=== PATIENT | male | born 1995 | race Two or more races ===

== ENCOUNTER 2017-03-31 09:39 | Emergency (ER) | payer SELFPAY ==
[2017-03-31] MEDS ORDERED: PENICILLIN G BENZATHINE 1.2 MILLION UNIT/2 ML DISP.SYRIN IM ONE (10:10)
[2017-03-31] MEDS ORDERED: CEFTRIAXONE INJ 250 MG VIAL IM ONE (10:28)
[2017-03-31] MEDS ORDERED: AZITHROMYCIN 250 MG TABLET PO ONE (10:28)
--- NOTE | 2017-03-31 10:31 | ER Document Report ---
HPI - HPI Onset/Duration: Persistent Quality of pain: No pain Pain Level: Denies Context: Patient presents with penile skin rash for the past 2-3 months. Patient states he has been seen for this in the past and has been placed on antifungal cream without improvement of his symptoms. Patient denies any pain or pruritus. Patient denies any penile drainage or discharge. Patient is concerned about possible sexually transmitted infection and would like to be tested. Associated Symptoms: Other - Penile rash. denies: Fever Exacerbated by: Denies Relieved by: Denies Similar symptoms previously: No Recently seen / treated by doctor: No - ROS ROS below otherwise negative: Yes Systems Reviewed and Negative: Yes All other systems reviewed and negative - CONSTITUTIONAL Constitutional: DENIES: Fever, Chills - EENT EENT: DENIES: Sore Throat - URINARY Urinary: DENIES: Dysuria, Urgency, Frequency - MUSCULOSKELETAL Musculoskeletal: DENIES: Back Pain - DERM Skin Problems: Rash Past Medical History - General Information source: Patient - Social History Smoking Status: Current Every Day Smoker Smoking Education Provided: Yes Frequency of alcohol use: Occasional Drug Abuse: None Occupation: HV[employer] Family History: Reviewed & Not Pertinent Patient has suicidal ideation: No Patient has homicidal ideation: No - Medical History Medical History: Negative Renal/ Medical History: Denies: Hx Peritoneal Dialysis Past Surgical History: Reports: Hx Orthopedic Surgery - middle finger left hand Vertical Provider Document - CONSTITUTIONAL Agree With Documented VS: Yes Exam Limitations: No Limitations General Appearance: WD/WN, No Apparent Distress - INFECTION CONTROL TRAVEL OUTSIDE OF THE [place] IN LAST 30 DAYS: No - HEENT HEENT: Atraumatic, Normocephalic - NECK Neck: Normal Inspection - RESPIRATORY Respiratory: Breath Sounds Normal, No Respiratory Distress O2 Sat by Pulse Oximetry: 98 - CARDIOVASCULAR Cardiovascular: Regular Rate, Regular Rhythm - REPRODUCTIVE Male Genitalia: Abnormal Inspection - Erythematous skin lesion to dorsal aspect of shaft of penis that measures about 1 cm diameter with smaller satellite erythematous lesion, very minimal scaling noted Notes: Normal cremasteric reflex, no inguinal lymphadenopathy no drainage or discharge from penis. Scrotal nontender - BACK Back: Normal Inspection - MUSCULOSKELETAL/EXTREMETIES Musculoskeletal/Extremeties: HUMBLE CARRERA - NEURO Level of Consciousness: Awake, Alert, Appropriate Motor/Sensory: No Motor Deficit - DERM Integumentary: Warm, Dry, Rash Course - Re-evaluation Re-evalutation: 03/31/17 10:29 Dr. Bailon to bedside for examination. Recommends STD testing and having patient follow up with urology or dermatology for further evaluation. Does not recommend any topical ointments to treat skin lesion. - Vital Signs Vital signs: Temp Pulse Resp BP Pulse Ox 99.1 F 65 18 132/63 H 98 03/31/17 09:52 03/31/17 09:52 03/31/17 09:52 03/31/17 09:52 03/31/17 09:52 Discharge - Discharge Clinical Impression: penile skin lesion, Concern about STD in male without diagnosis Condition: Stable Disposition: HOME, SELF-CARE Instructions: Antibiotic Shot ([facility]), Azithromycin ([facility]), Rocephin ([facility]) Additional Instructions: Return immediately for any new or worsening symptoms Followup with your primary care provider, call tomorrow to make a followup appointment Follow-up with a urologist or supervisor dry cell assembly for further evaluation of skin lesion Safe sex practices Follow-up with the health department for HIV testing Forms: Smoking Cessation Education [facility]
[2017-03-31 11:46] VITALS: BP 126/67
[2017-03-31] MEDS ORDERED: LIDOCAINE 1% INJ-PF (10 MG/ML) 30 ML SDV INJ ONE (11:57)
[2017-03-31 12:22] LABS: CHLAM PCR NOT DETECTED (NOT DETECT); GON PCR NOT DETECTED (NOT DETECT)
== END 2017-03-31 12:38 | disposition home or self-care (01) ==
LOC: ER 09:39
DX: L98.8 Other specified disorders of the skin and subcutaneous tissue (principal); F17.200 Nicotine dependence, unspecified, uncomplicated; Z20.2 Contact with and (suspected) exposure to infections with a predominantly sexual mode of transmission
CPT/HCPCS: 99283; 36415; 86592; 87491; 87591; J3490; J0561; J0696